=== PATIENT | female | born 1965 ===

== ENCOUNTER 2020-05-01 08:17 | Outpatient (CLI) | payer OTHER | END 2020-05-01 08:46 | disposition home or self-care (01) | LOC: OFIC 805 08:17 | PROVIDERS: ATTEND Otolaryngology Otology & Neurotology | DX: K11.20 Sialoadenitis, unspecified (principal); K11.5 Sialolithiasis ==

== ENCOUNTER 2020-05-18 09:02 | Outpatient (CLI) | payer OTHER | END 2020-05-18 09:34 | disposition home or self-care (01) | LOC: OFIC 805 09:02 | PROVIDERS: ATTEND Otolaryngology Otology & Neurotology | DX: K11.20 Sialoadenitis, unspecified (principal); K11.8 Other diseases of salivary glands ==